=== PATIENT | female | born 1965 | race Hispanic/Latino ===

== ENCOUNTER 2022-10-14 09:20 | Day surgery (SDC) | payer MEDICARE ==
[~2022-10-14] VITALS: Ht 157.5 cm; Wt 95.3 kg
[2022-10-14] VITALS (19 sets, daily range): BP systolic 138–170; BP diastolic 37–63
[2022-10-14 10:21] LABS: HEMATOCRIT 32.6 % (36-48); MEAN CORPUSCULAR HEMOGLOBIN 32.4 pg (27.0-33.0); MEAN CORPUSCULAR HGB CONC 33.7 g/dL (32.0-36.0); MEAN CORPUSCULAR VOLUME 96.2 fL (79-99); RED BLOOD CELL COUNT(AUTO) 3.39 MIL/uL (4.00-5.50); RED CELL DISTRIBUTION WIDTH 13.5 % (11.0-15.5); WHITE BLOOD COUNT (AUTO) 6.1 K/uL (4.8-10.8)
[2022-10-14] MEDS ORDERED: 0.9% NACL 500ML IV.SOLN 500 ML IV ONE (10:22)
[2022-10-14 10:29] LABS: CREATININE 4.2 mg/dL (0.5-1.5)
[2022-10-14] MEDS ORDERED: CEFAZOLIN SODIUM 1 GM VIAL IVPB SCH (10:30)
[2022-10-14 10:54] LABS: INR 1.03 (0.85-1.15); PROTHROMBIN TIME 11.2 SEC (9.6-11.6)
[2022-10-14 10:56] LABS: PARTIAL THROMBOPLASTIN TIME 30.2 SEC (26.3-35.5)
[2022-10-14] MEDS ORDERED: FOLIC ACID PO (11:39)
[2022-10-14] MEDS ORDERED: EZET10TA48 PO (11:39)
[2022-10-14] MEDS ORDERED: CLON0.1T PO (11:39)
[2022-10-14] MEDS ORDERED: HYDR100T27 PO (11:39)
[2022-10-14] MEDS ORDERED: FERR-72 PO (11:39)
[2022-10-14] MEDS ORDERED: METO100T14 PO (11:39)
[2022-10-14] MEDS ORDERED: TRINTELLIX PO (11:39)
[2022-10-14] MEDS ORDERED: MAGN400T53 PO (11:39)
[2022-10-14] MEDS ORDERED: CILO50TA2 PO (11:39)
[2022-10-14] MEDS ORDERED: DICY20TA3 PO (11:39)
[2022-10-14] MEDS ORDERED: FENOFIBRATE PO (11:39)
[2022-10-14] MEDS ORDERED: PANT40TA54 PO (11:39)
[2022-10-14] MEDS ORDERED: CHOL100040 PO (11:39)
[2022-10-14] MEDS ORDERED: GABA-529 PO (11:39)
[2022-10-14] MEDS ORDERED: ATOR20TA65 PO (11:39)
[2022-10-14] MEDS ORDERED: LIDOCAINE HCL 1% 20 ML VIAL ONE (12:32)
[2022-10-14] MEDS ORDERED: BUPIVACAINE/PF 0.5% 30ML VIAL ONE ×2 (12:32→12:33)
[2022-10-14] MEDS ORDERED: CEFAZOLIN SODIUM 1 GM VIAL ONE (12:32)
[2022-10-14] MEDS ORDERED: ROCURONIUM 10MG/1ML SYR 10 MG/ML ML ONE (12:34)
[2022-10-14] MEDS ORDERED: PROPOFOL 10 MG/ML 20ML VIAL IV ONE (12:34)
[2022-10-14] MEDS ORDERED: FENTANYL CITRATE PF 50 MCG/1 ML 2ML VIAL ONE (12:34)
[2022-10-14] MEDS ORDERED: CEFAZOLIN SODIUM 2 GM VIAL IVPB ONE (12:46)
[2022-10-14] MEDS ORDERED: LIDOCAINE HCL 1% 20 ML VIAL MISC ONE (12:52)
[2022-10-14] MEDS ORDERED: BUPIVACAINE/PF 0.5% 30ML VIAL INJ ONE (12:54)
[2022-10-14] MEDS ORDERED: ONDANSETRON 4MG INJ ONE (12:58)
[2022-10-14] MEDS ORDERED: HEPARIN 10,000 UNIT/10ML (1,000 UNIT/ML) VIAL ONE (13:06)
[2022-10-14] MEDS ORDERED: PROTAMINE SULFATE 10 MG/ML 25ML VIAL IV ONE (13:06)
[2022-10-14] MEDS ORDERED: EPHEDRINE SULFATE 50 MG/ML AMPULE ONE (13:46)
[2022-10-14] MEDS ORDERED: MORPHINE 2 MG SYG ONE ×2 (14:31→15:17)
== END 2022-10-14 16:15 | disposition home or self-care (01) ==
LOC: DAH 09:20
PROVIDERS: ATTEND Thoracic Surgery (Cardiothoracic Vascular Surgery)
DX: I12.0 Hypertensive chronic kidney disease with stage 5 chronic kidney disease or end stage renal disease (principal); E11.22 Type 2 diabetes mellitus with diabetic chronic kidney disease; N18.6 End stage renal disease; F41.9 Anxiety disorder, unspecified; F32.A Depression, unspecified; J45.909 Unspecified asthma, uncomplicated; E66.01 Morbid (severe) obesity due to excess calories; Z68.38 Body mass index [BMI] 38.0-38.9, adult; Z79.899 Other long term (current) drug therapy; Z86.73 Personal history of transient ischemic attack (TIA), and cerebral infarction without residual deficits
CPT/HCPCS: 80048; 85027; 85610; 85730; 86850; 86900; 86901; 82948; 87426; 36415; 71045; 93005; 36821; J2720; A4663; A6207; J7030; A4452; J7040; J3010; J0690 ×3; J3490 ×4; J1644 ×2; J2704; J2405; G0168; A4649 ×2; C1713 ×2; A4930; A4215; A4223; A4222; A4221